=== PATIENT | female | born 1955 | race African-American/Black ===

== ENCOUNTER 2018-01-10 21:32 | Emergency (ER) | payer OTHER ==
[~2018-01-10] VITALS: Ht 157.5 cm; Wt 62.8 kg
[~2018-01-10 21:32] MED LIST: NORCO 5/3251 TABLET PO
[2018-01-11] MEDS ORDERED: NORCO 7.5/321 TABLET PO (00:38)
[2018-01-11] MEDS ORDERED: VALIUM5 MG PO (00:38)
[2018-01-11] MEDS ORDERED: MUCINEX D ER T1 EACH PO (00:38)
[2018-01-11] MEDS ORDERED: MOTRIN800 MG PO (00:38)
[2018-01-11 01:03] VITALS: BP 153/91
== END 2018-01-11 01:04 | disposition home or self-care (01) ==
LOC: EME 21:32
DX: M50.10 Cervical disc disorder with radiculopathy, unspecified cervical region (principal); M48.02 Spinal stenosis, cervical region; H65.01 Acute serous otitis media, right ear; M25.511 Pain in right shoulder; M79.601 Pain in right arm; R19.7 Diarrhea, unspecified; M25.78 Osteophyte, vertebrae; Z88.0 Allergy status to penicillin
CPT/HCPCS: 72040; 99281; 99284; J3010